=== PATIENT | female | born 1955 | race Caucasian/White ===

== ENCOUNTER 2016-11-12 11:29 | Emergency (ER) | payer MEDICARE, MEDICAID ==
[~2016-11-12 11:29] MED LIST: /ACETCOD2T PO; /MOXI40TA PO; ABIL5TAB PO; ADV500INH INH; ALB2.5NEB INH; ALBU0.084 INH; ALBU83IN INH; ALEV220T26 PO; ASPI81CH21 PO; ASPI81TA60 PO; ATOR1TAB21 PO; ATRO1OPD OU; AVEL1TAB PO; B-1210009 PO; BACT2OIN2 TOP; BENA25CA2 PO; BENZ100C5 PO; DOXY100C42 PO; DUONSOL IN; FURO1TAB15 PO; GABA-283 PO; GABA300C3 PO; GLUC500T PO; HYDR-3713 PO; IBUP200T45 PO; LASI20TA PO; LASI40TA PO; LORA-376 PO; LORA1TAB12 PO; MAGN500C PO; MAGN500T5 PO; MELA3CAP PO; METF500T PO; MORP20SO PO; NEUR300C PO; OXYGEN; PRED10TA2 PO; PRED20TA PO; PRED5TA PO; PROA1AER INH; SERT-141 PO; SPIR1CAP INH; SPIRIVA INH; TRAN1.5D2 TOP; TYLE325T5 PO; VENL37TA PO; VENTAER INH; VITA10002 PO; VITA100L PO; VOLT1GEL24 TD; Vicodin 5/325 PO; spiriva inhaler INH
[2016-11-12 13:22] LABS: MEAN CORPUSCULAR HGB CONC 33.3 g/dl (32.0-36.5); MEAN CORPUSCULAR VOLUME 89.9 fl (80.0-96.0); RED CELL DISTRIBUTION WIDTH 15.1 % (11.5-14.5); WHITE BLOOD COUNT 9.3 K/mm3 (4.0-10.0)
[2016-11-12 13:42] LABS: ANION GAP 6 MEQ/L (8-16); BLOOD UREA NITROGEN 11 MG/DL (7-18); CALCIUM LEVEL 9.1 MG/DL (8.8-10.2); CARBON DIOXIDE LEVEL 30 MEQ/L (21-32); CHLORIDE LEVEL 105 MEQ/L (98-107); CREATININE FOR GFR 0.85 MG/DL (0.55-1.02); GLOMERULAR FILTRATION RATE > 60.0 (>45); GLUCOSE, FASTING 99 MG/DL (80-110); POTASSIUM SERUM 3.9 MEQ/L (3.5-5.1); SODIUM LEVEL 141 MEQ/L (136-145)
--- NOTE | 2016-11-12 13:51 | REP ---
Chest x-ray: Two views. History: Cough. Comparison chest x-ray July 26, 2015. Findings: There is a granulomatous calcification in the left upper lobe. The lungs are otherwise well inflated and clear. Pleural angles are sharp. Heart size is normal. Pulmonary vasculature is not increased. There are some degenerative changes in the thoracic spine. Impression: Old granulomatous nodule. No active disease. Signed by Babatunde Chavez MD 11/12/2016 04:22 P
--- NOTE | 2016-11-12 14:53 | EDDOCDS ---
Physician Documentation [facility] Name: Ava Davila Age: 61 yrs Sex: Female : 1955 Arrival Date: 11/12/2016 Time: 11:29 Bed 8 Private MD: Mane Carlos MD Disposition: 11/12/16 13:57 Discharged to Home/Self Care. Impression: Diarrhea, unspecified, Viral infection, unspecified, Malaise and fatigue. - Condition is Stable. - Discharge Instructions: Diarrhea, Weakness, Fatigue. - Prescriptions for Zofran 4 mg Oral Tablet - take 1 tablet by ORAL route 4 times per day As needed; 10 tablet. - Medication Reconciliation, Local Pharmacy Hours form. - Follow up: Mane Carlos; When: 4 - 5 days; Reason: Recheck today's complaints, Continuance of care. - Problem is an ongoing problem. - Symptoms are unchanged. Historical: - Allergies: meloxicam; montelukast; nicoderm; PENICILLINS; POTASSIUM CHLORIDE; Tramadol HCl; - Home Meds: 1. Spiriva with HandiHaler 18 mcg Inhl CpDv 1 cap once daily (Last dose: 11/11/2016) 2. ProAir HFA 90 mcg/actuation inhalation HFAA 1 puff every 4-6 hours (Last dose: 11/11/2016) 3. prednisone 5 mg Oral tab once daily (Last dose: 11/11/2016) 4. Vicodin 5-325 Oral tab 1 tab every 6 hours (Last dose: 11/11/2016) 5. gabapentin 300 mg Oral cap 1 cap 3 times per day (Last dose: 11/11/2016) 6. albuterol sulfate 2.5 mg /3 mL (0.083 %) Inhl nebu every 6 hours (Last dose: Unknown) 7. Advair Diskus 500-50 mcg/dose Inhl dsdv 1 puff 2 times per day (Last dose: 11/11/2016) 8. atorvastatin 20 mg oral tab 1 tab once daily (Last dose: 11/11/2016) 9. Sertraline 50 mg daily (Last dose: 11/11/2016) - PMHx: Arthritis; Bipolar disorder; CHF; COPD; edema; hyperlipidemia; Obesity; polyneuropathy; - PSHx: Lumpectomy- Right; Hysterectomy; Cholecystectomy; Appendectomy; Lithotripsy; - Social history: Smoking status: Patient uses tobacco products, heavy tobacco smoker. No barriers to communication noted, The patient speaks fluent Angolan. - Family history: No immediate family members are acutely ill. - : The pt / caregiver states he / she is not on anticoagulants. Home medication list is obtained from the patient. - Exposure Risk Screening:: None identified. Vital Signs: 11/12 11:43 BP 147 / 72; Pulse 86; Resp 18; Temp 98.1(TE); Pulse Ox 96% 4% ; Weight 76.66 kg / mb9 169.01 lbs (R); Height 5 ft. (152.40 cm) (R); Pain 0/10; 14:33 BP 129 / 62; Pulse 89; Resp 17; Temp 98.4(O); Pulse Ox 96% 4% ; mb9 11:43 Body Mass Index 33.01 (76.66 kg, 152.40 cm) mb9 MDM: 12:46 IV Saline Lock ordered. ke 12:46 Obtain sample by nasopharyngeal swab ordered. ke 12:46 NS 0.9% 1000 ml IV at bolus once ordered. ke 12:47 CBC Ordered. EDMS 12:47 BMP Ordered. EDMS 12:47 -Influenza A&B Rapid Antigen - Nose Ordered. EDMS 12:47 UA Ordered. EDMS 12:47 Urine Culture Ordered. EDMS 12:47 Chest, 2 View (pa\E\lat) Ordered. EDMS 13:37 Financial registration complete. lg 13:47 CBC Reviewed. ke 13:47 BMP Reviewed. ke 13:47 UA Reviewed. ke 13:47 -Influenza A&B Rapid Antigen - Nose Reviewed. ke 14:27 [facility] Agreement was scanned into [employer] and attached to record. lg Administered Medications: 13:09 Drug: NS 0.9% 1000 ml [sodium chloride 0.9 % intravenous solution] Route: IV; Rate: mb9 bolus; Site: left forearm; 14:36 Follow up: IV Intake: 1000ml mb9 Signatures: Dispatcher [employer] EDChris Díaz Reg Reg lg Elsner, Karl, FIRST BREAKER FEEDER FIRST BREAKER FEEDER Neri SantanaRN RN mb9 The chart was reviewed and I authenticate all verbal orders and agree with the evaluation and treatment provided.Attachments: 14:27 [facility] Payment Agreement lg MTDD
--- NOTE | 2016-11-12 14:53 | EDDOCDS ---
Nurse's Notes [facility] Name: Ava Davila Age: 61 yrs Sex: Female : 1955 Arrival Date: 11/12/2016 Time: 11:29 Bed 8 Private MD: Mane Carlos MD Diagnosis: Diarrhea, unspecified;Viral infection, unspecified;Malaise and fatigue Presentation: 11/12 11:32 Presenting complaint: Presenting complaint: Patient states: "I've been sick. I think I mb9 might have a cold or the flu or something. I haven't been able to eat or drink it makes me sick. I thought I might be dehydrated.". Suicide/Homicide risk assessment- the patient denies having any suicidal and/or homicidal ideations and does not present with any other emotional, behavioral or mental health complaints. Status: Patient is not a hvac field service technician or dependent. Transition of care: patient was not received from another setting of care. 11:32 Method Of Arrival: Ambulance 9 11:32 Acuity: DOMONIQUE Level 3 9 11:32 Adult Sepsis Screening: The patient does not have new or worsening altered mentation. mb9 Patient's respiratory rate is less than 22. Systolic blood pressure is greater than 100. Patient has a qSOFA score of 0- Negative Sepsis Screen. Triage Assessment: 11:43 General: Appears uncomfortable, Behavior is appropriate for age, cooperative. Pain: mb9 Denies pain. HIV screening NA for this visit Offered previously. The patient is triaged at the bedside. See Assessment in Nurses Notes section of ED record. Neurological: Level of Consciousness is awake, alert, Oriented to person, place, time. Respiratory: Airway is patent Respiratory effort is even, unlabored, Breath sounds are clear bilaterally. Breath sounds are diminished bilaterally. GI: Reports nausea. Historical: - Allergies: meloxicam; montelukast; nicoderm; PENICILLINS; POTASSIUM CHLORIDE; Tramadol HCl; - Home Meds: 1. Spiriva with HandiHaler 18 mcg Inhl CpDv 1 cap once daily (Last dose: 11/11/2016) 2. ProAir HFA 90 mcg/actuation inhalation HFAA 1 puff every 4-6 hours (Last dose: 11/11/2016) 3. prednisone 5 mg Oral tab once daily (Last dose: 11/11/2016) 4. Vicodin 5-325 Oral tab 1 tab every 6 hours (Last dose: 11/11/2016) 5. gabapentin 300 mg Oral cap 1 cap 3 times per day (Last dose: 11/11/2016) 6. albuterol sulfate 2.5 mg /3 mL (0.083 %) Inhl nebu every 6 hours (Last dose: Unknown) 7. Advair Diskus 500-50 mcg/dose Inhl dsdv 1 puff 2 times per day (Last dose: 11/11/2016) 8. atorvastatin 20 mg oral tab 1 tab once daily (Last dose: 11/11/2016) 9. Sertraline 50 mg daily (Last dose: 11/11/2016) - PMHx: Arthritis; Bipolar disorder; CHF; COPD; edema; hyperlipidemia; Obesity; polyneuropathy; - PSHx: Lumpectomy- Right; Hysterectomy; Cholecystectomy; Appendectomy; Lithotripsy; - Social history: Smoking status: Patient uses tobacco products, heavy tobacco smoker. No barriers to communication noted, The patient speaks fluent Bermudian. - Family history: No immediate family members are acutely ill. - : The pt / caregiver states he / she is not on anticoagulants. Home medication list is obtained from the patient. - Exposure Risk Screening:: None identified. Screenin:48 Screening information is obtained from the patient. Fall risk: No risks identified. mb9 Assistance ADL's: requires no assistance with activities of daily living. Abuse/DV Screen: The patient / caregiver reports he/she is: not in a situation that causes fear, pain or injury. Nutritional screening: No deficits noted. Advance Directives: Currently, there is a health care proxy, Ashia Davila. There is an active DNR order but there is no copy available at this time. Advance directive information has been placed on a prior [facility] medical record, but the patient/ family does not know when. home support is adequate. Assessment: 12:24 General: Appears in no apparent distress, comfortable, Behavior is fussy. General: pt mb9 able to ambulate to the bathroom with O2 in place with no apparent distress. pt ambulated 20 ft.. Pain: Denies pain. Respiratory: Airway is patent Respiratory effort is even, unlabored. 13:10 Reassessment: Patient appears in no apparent distress at this time. General: Appears mb9 comfortable, Behavior is appropriate for age, cooperative. Respiratory: Airway is patent Respiratory effort is even, unlabored. 14:33 Reassessment: Patient appears in no apparent distress at this time. Patient states mb9 symptoms have improved. Adult Sepsis Screening: The patient does not have new or worsening altered mentation. Patient's respiratory rate is less than 22. Systolic blood pressure is greater than 100. Patient has a qSOFA score of 0- Negative Sepsis Screen. General: Appears in no apparent distress, comfortable, Behavior is appropriate for age, cooperative. Respiratory: Airway is patent Respiratory effort is even, unlabored. Vital Signs: 11:43 BP 147 / 72; Pulse 86; Resp 18; Temp 98.1(TE); Pulse Ox 96% 4% ; Weight 76.66 kg (R); mb9 Height 5 ft. (152.40 cm) (R); Pain 0/10; 14:33 BP 129 / 62; Pulse 89; Resp 17; Temp 98.4(O); Pulse Ox 96% 4% ; mb9 11:43 Body Mass Index 33.01 (76.66 kg, 152.40 cm) mb9 Vitals: 11:43 Log In Time N/A - ambulance arrival. mb9 ED Course: 11:30 Patient visited by Suzy Ayoub, Aquaculture And Fisheries Professor. lbd 11:30 Mane Carlos is Private Physician. lbd 11:30 Patient moved to Waiting lbd 11:31 Carey Mantilla,AMBER is Primary Nurse. lbd 11:31 Patient moved to 8 lbd 11:37 Triage Initiated mb9 11:48 The patient / caregiver is instructed regarding the plan of care and ED course. Patient hussain has correct armband on for positive identification. Placed in gown. Bed in low position. Call light in reach. Side rails up X2. 12:24 Patient visited by Neri Jacobson,AMBER. mb9 12:35 [facility] ke 12:35 Patient visited by Danis Chopra FNP. ke 12:35 Patient visited by Danis Chopra FNP. ke 13:09 Patient visited by Neri Jacobson,AMBER. mb9 13:09 Urine Culture Sent. mb9 13:10 UA Sent. mb9 13:10 -Influenza A&B Rapid Antigen - Nose Sent. mb9 13:10 BMP Sent. mb9 13:10 CBC Sent. mb9 13:10 Inserted saline lock: 18 gauge in right forearm and blood collected. The patient mb9 tolerated the procedure well. 13:46 Patient visited by Danis Chopra FNP. ke 13:56 Mane Carlos is Referral Physician. ke 14:22 Chest, 2 View (pa\\E\\lat) Returned. EDMS 14:27 [facility] Payment Agreement was scanned into [employer] and attached to record. lg 14:33 Discontinued IV lock intact, bleeding controlled, pressure dressing applied, No mb9 redness/swelling at site. No procedures done that require assistance. Administered Medications: 13:09 Drug: NS 0.9% 1000 ml [sodium chloride 0.9 % intravenous solution] Route: IV; Rate: mb9 bolus; Site: left forearm; 14:36 Follow up: IV Intake: 1000ml mb9 Intake: 14:36 IV: 1000.00ml; Total: 1000.00ml. mb9 Order Results: Lab Order: CBC; SPEC'M 11/12/16 13:06 Test: WHITE BLOOD COUNT; Value: 9.3; Range: 4.0-10.0; Units: K/mm3; Status: F Test: RED BLOOD COUNT; Value: 4.42; Range: 4.00-5.40; Units: M/mm3; Status: F Test: HEMOGLOBIN; Value: 13.2; Range: 12.0-16.0; Units: g/dl; Status: F Test: HEMATOCRIT; Value: 39.7; Range: 36.0-47.0; Units: %; Status: F Test: MEAN CORPUSCULAR VOLUME; Value: 89.9; Range: 80.0-96.0; Units: fl; Status: F Test: MEAN CORPUSCULAR HEMOGLOBIN; Value: 30.0; Range: 27.0-33.0; Units: pg; Status: F Test: MEAN CORPUSCULAR HGB CONC; Value: 33.3; Range: 32.0-36.5; Units: g/dl; Status: F Test: RED CELL DISTRIBUTION WIDTH; Value: 15.1; Range: 11.5-14.5; Abnormal: Above high normal; Units: %; Status: F Test: PLATELET COUNT, AUTOMATED; Value: 290; Range: 150-450; Units: k/mm3; Status: F Lab Order: BMP; SPEC'M 11/12/16 13:06 Test: GLUCOSE, FASTING; Value: 99; Range: 80-110; Units: MG/DL; Status: F Test: BLOOD UREA NITROGEN; Value: 11; Range: 7-18; Units: MG/DL; Status: F Test: CREATININE FOR GFR; Value: 0.85; Range: 0.55-1.02; Units: MG/DL; Status: F Test: GLOMERULAR FILTRATION RATE; Value: > 60.0; Range: >45; Status: F Test: SODIUM LEVEL; Value: 141; Range: 136-145; Units: MEQ/L; Status: F Test: POTASSIUM SERUM; Value: 3.9; Range: 3.5-5.1; Units: MEQ/L; Status: F Test: CHLORIDE LEVEL; Value: 105; Range: 98-107; Units: MEQ/L; Status: F Test: CARBON DIOXIDE LEVEL; Value: 30; Range: 21-32; Units: MEQ/L; Status: F Test: ANION GAP; Value: 6; Range: 8-16; Abnormal: Below low normal; Units: MEQ/L; Status: F Test: CALCIUM LEVEL; Value: 9.1; Range: 8.8-10.2; Units: MG/DL; Status: F Test Note: ; Units are mL/min/1.73 m2 Chronic Kidney Disease Staging per NKF: Stage I & II GFR >=60 Normal to Mildly Decreased Stage III GFR 30-59 Moderately Decreased Stage IV GFR 15-29 Severely Decreased Stage V GFR <15 Very Little GFR Left ESRD GFR <15 on CHILD CARE NURSE Lab Order: -Influenza A&B Rapid Antigen - Nose; SPEC'M 11/12/16 13:06 Test: INFLUENZA A RAPID SCR by ICA; Value: INFLUENZA A RESULTS NEGATIVE; Status: F Test: INFLUENZA A RAPID SCR by ICA; Value: Comments:; Status: F Test: INFLUENZA B RAPID SCR by ICA; Value: INFLUENZA B RESULTS NEGATIVE; Status: F Test Note: ; The Influenza test is a direct rapid immunoassay for the qualitative detection of Influenza viral antigen. Cell culture (Viral Culture) testing should be considered to confirm NEGATIVE results and to assist in detecting other viruses that can provide similar clinical symptoms. Please contact the lab within 24 [phone] if confirmatory testing is desired. Lab Order: UA; SPEC'M 11/12/16 13:06 Test: APPEARANCE, URINE; Value: CLEAR; Range: CLEAR; Status: F Test: COLOR, URINE; Value: YELLOW; Range: YELLOW; Status: F Test: PH,URINE; Value: 5.0; Range: 5.0-9.0; Units: UNITS; Status: F Test: SPECIFIC GRAVITY URINE AUTO; Value: 1.024; Range: 1.002-1.035; Status: F Test: PROTEIN, URINE AUTO; Value: NEGATIVE; Range: NEGATIVE; Units: mg/dL; Status: F Test: GLUCOSE, URINE (UA) AUTO; Value: NEGATIVE; Range: NEGATIVE; Units: mg/dL; Status: F Test: KETONE, URINE AUTO; Value: NEGATIVE; Range: NEGATIVE; Units: mg/dL; Status: F Test: UROBILINOGEN, URINE AUTO; Value: 0.2; Range: 0.0-2.0; Units: mg/dL; Status: F Test: BILIRUBIN, URINE AUTO; Value: NEGATIVE; Range: NEGATIVE; Status: F Test: NITRITE, URINE AUTO; Value: NEGATIVE; Range: NEGATIVE; Status: F Test: LEUKOCYTE ESTERASE, URINE AUTO; Value: NEGATIVE; Range: NEGATIVE; Status: F Test: BLOOD, URINE BLOOD; Value: 1+; Range: NEGATIVE; Abnormal: Above high normal; Status: F Test: WBC, URINE AUTO; Value: 0; Range: 0-3; Units: /HPF; Status: F Test: RBC, URINE AUTO; Value: 28; Range: 0-3; Abnormal: Above high normal; Units: /HPF; Status: F Test: BACTERIA, URINE AUTO; Value: NEGATIVE; Range: NEGATIVE; Status: F Test: SQUAMOUS EPITHELIAL CELL UR AU; Value: 8; Range: 0-6; Units: /HPF; Status: F Test: MUCUS, URINE; Value: SMALL; Range: NEGATIVE; Status: F Test: HYALINE CAST, URINE AUTO; Value: 0; Range: 0-1; Units: /LPF; Status: F Radiology Order: Chest, 2 View (pa\\E\\lat) Test: Chest, 2 View (pa\\E\\lat) REASON FOR EXAMINATION: Cough; Chest x-ray: Two views.; ; History: Cough. Comparison chest x-ray July 26, 2015.; ; Findings: There is a granulomatous calcification in the left upper lobe. The; lungs are otherwise well inflated and clear. Pleural angles are sharp. Heart; size is normal. Pulmonary vasculature is not increased. There are some; degenerative changes in the thoracic spine.; ; Impression:; ; Old granulomatous nodule. No active disease.; ; ; ; ; Unreviewed; Outcome: 13:57 Discharge ordered by Provider. annette 14:33 Discharge Assessment: Patient awake, alert and oriented x 3. No cognitive and/or mb9 functional deficits noted. Patient verbalized understanding of disposition instructions. patient administered narcotics - no. The following High Risk Discharge criteria are identified: None. Discharged to home ambulatory. Condition: good Condition: stable Condition: improved. Discharge instructions given to patient, Instructed on discharge instructions, follow up and referral plans. medication usage, Demonstrated understanding of instructions, medications, Pt was receptive of discharge instructions/ teaching. Prescriptions given X 1. No special radiology studies were completed. Property :Personal belongings accompany Pt. 14:52 Patient left the ED. mb9 Signatures: Dispatcher [employer] EDMS Suzy Ayoub, Aquaculture And Fisheries Professor Unit lbd Chris Martin, Reg Reg lg Danis Chopra, SPACE AND STORAGE CLERK SPACE AND STORAGE CLERK Neri Santana,RN RN mb9 MTDD
--- NOTE | 2016-11-14 15:52 | EDDOCDS ---
Nurse's Notes [facility] Name: Ava Davila Age: 61 yrs Sex: Female : 1955 Arrival Date: 11/12/2016 Time: 11:29 Bed 8 Private MD: Mane Carlos MD Diagnosis: Diarrhea, unspecified;Viral infection, unspecified;Malaise and fatigue Presentation: 11/12 11:32 Presenting complaint: Presenting complaint: Patient states: "I've been sick. I think I mb9 might have a cold or the flu or something. I haven't been able to eat or drink it makes me sick. I thought I might be dehydrated.". Suicide/Homicide risk assessment- the patient denies having any suicidal and/or homicidal ideations and does not present with any other emotional, behavioral or mental health complaints. Status: Patient is not a director human services or dependent. Transition of care: patient was not received from another setting of care. 11:32 Method Of Arrival: Ambulance 9 11:32 Acuity: DOMONIQUE Level 3 9 11:32 Adult Sepsis Screening: The patient does not have new or worsening altered mentation. mb9 Patient's respiratory rate is less than 22. Systolic blood pressure is greater than 100. Patient has a qSOFA score of 0- Negative Sepsis Screen. Triage Assessment: 11:43 General: Appears uncomfortable, Behavior is appropriate for age, cooperative. Pain: mb9 Denies pain. HIV screening NA for this visit Offered previously. The patient is triaged at the bedside. See Assessment in Nurses Notes section of ED record. Neurological: Level of Consciousness is awake, alert, Oriented to person, place, time. Respiratory: Airway is patent Respiratory effort is even, unlabored, Breath sounds are clear bilaterally. Breath sounds are diminished bilaterally. GI: Reports nausea. Historical: - Allergies: meloxicam; montelukast; nicoderm; PENICILLINS; POTASSIUM CHLORIDE; Tramadol HCl; - Home Meds: 1. Spiriva with HandiHaler 18 mcg Inhl CpDv 1 cap once daily (Last dose: 11/11/2016) 2. ProAir HFA 90 mcg/actuation inhalation HFAA 1 puff every 4-6 hours (Last dose: 11/11/2016) 3. prednisone 5 mg Oral tab once daily (Last dose: 11/11/2016) 4. Vicodin 5-325 Oral tab 1 tab every 6 hours (Last dose: 11/11/2016) 5. gabapentin 300 mg Oral cap 1 cap 3 times per day (Last dose: 11/11/2016) 6. albuterol sulfate 2.5 mg /3 mL (0.083 %) Inhl nebu every 6 hours (Last dose: Unknown) 7. Advair Diskus 500-50 mcg/dose Inhl dsdv 1 puff 2 times per day (Last dose: 11/11/2016) 8. atorvastatin 20 mg oral tab 1 tab once daily (Last dose: 11/11/2016) 9. Sertraline 50 mg daily (Last dose: 11/11/2016) - PMHx: Arthritis; Bipolar disorder; CHF; COPD; edema; hyperlipidemia; Obesity; polyneuropathy; - PSHx: Lumpectomy- Right; Hysterectomy; Cholecystectomy; Appendectomy; Lithotripsy; - Social history: Smoking status: Patient uses tobacco products, heavy tobacco smoker. No barriers to communication noted, The patient speaks fluent [place]. - Family history: No immediate family members are acutely ill. - : The pt / caregiver states he / she is not on anticoagulants. Home medication list is obtained from the patient. - Exposure Risk Screening:: None identified. Screenin:48 Screening information is obtained from the patient. Fall risk: No risks identified. mb9 Assistance ADL's: requires no assistance with activities of daily living. Abuse/DV Screen: The patient / caregiver reports he/she is: not in a situation that causes fear, pain or injury. Nutritional screening: No deficits noted. Advance Directives: Currently, there is a health care proxy, Ashia Davila. There is an active DNR order but there is no copy available at this time. Advance directive information has been placed on a prior [facility] medical record, but the patient/ family does not know when. home support is adequate. Assessment: 12:24 General: Appears in no apparent distress, comfortable, Behavior is fussy. General: pt mb9 able to ambulate to the bathroom with O2 in place with no apparent distress. pt ambulated 20 ft.. Pain: Denies pain. Respiratory: Airway is patent Respiratory effort is even, unlabored. 13:10 Reassessment: Patient appears in no apparent distress at this time. General: Appears mb9 comfortable, Behavior is appropriate for age, cooperative. Respiratory: Airway is patent Respiratory effort is even, unlabored. 14:33 Reassessment: Patient appears in no apparent distress at this time. Patient states mb9 symptoms have improved. Adult Sepsis Screening: The patient does not have new or worsening altered mentation. Patient's respiratory rate is less than 22. Systolic blood pressure is greater than 100. Patient has a qSOFA score of 0- Negative Sepsis Screen. General: Appears in no apparent distress, comfortable, Behavior is appropriate for age, cooperative. Respiratory: Airway is patent Respiratory effort is even, unlabored. Vital Signs: 11:43 BP 147 / 72; Pulse 86; Resp 18; Temp 98.1(TE); Pulse Ox 96% 4% ; Weight 76.66 kg (R); mb9 Height 5 ft. (152.40 cm) (R); Pain 0/10; 14:33 BP 129 / 62; Pulse 89; Resp 17; Temp 98.4(O); Pulse Ox 96% 4% ; mb9 11:43 Body Mass Index 33.01 (76.66 kg, 152.40 cm) mb9 Vitals: 11:43 Log In Time N/A - ambulance arrival. mb9 ED Course: 11:30 Patient visited by Suzy Ayoub, Tubing Machine Tender. lbd 11:30 Mane Carlos is Private Physician. lbd 11:30 Patient moved to Waiting lbd 11:31 Carey Mantilla,AMBER is Primary Nurse. lbd 11:31 Patient moved to 8 lbd 11:37 Triage Initiated mb9 11:48 The patient / caregiver is instructed regarding the plan of care and ED course. Patient hussain has correct armband on for positive identification. Placed in gown. Bed in low position. Call light in reach. Side rails up X2. 12:24 Patient visited by Neri Jacobson,AMBER. mb9 12:35 [facility] F[facility]. ke 12:35 Patient visited by Danis Chopra FNP. ke 12:35 Patient visited by Danis Chopra FNP. ke 13:09 Patient visited by Neri Jacobson,AMBER. mb9 13:09 Urine Culture Sent. mb9 13:10 UA Sent. mb9 13:10 -Influenza A&B Rapid Antigen - Nose Sent. mb9 13:10 BMP Sent. mb9 13:10 CBC Sent. mb9 13:10 Inserted saline lock: 18 gauge in right forearm and blood collected. The patient mb9 tolerated the procedure well. 13:46 Patient visited by Danis Chopra FNP. ke 13:56 Mane Carols is Referral Physician. ke 14:22 Chest, 2 View (pa\\E\\lat) Returned. EDMS 14:27 [facility] [place] Payment Agreement was scanned into [employer] and attached to record. lg 14:33 Discontinued IV lock intact, bleeding controlled, pressure dressing applied, No mb9 redness/swelling at site. No procedures done that require assistance. 16:04 T-Sheet-- Draft Copy was scanned into [employer] and attached to record. klr Administered Medications: 13:09 Drug: NS 0.9% 1000 ml [sodium chloride 0.9 % intravenous solution] Route: IV; Rate: mb9 bolus; Site: left forearm; 14:36 Follow up: IV Intake: 1000ml mb9 Intake: 14:36 IV: 1000.00ml; Total: 1000.00ml. mb9 Order Results: Lab Order: CBC; SPEC'M 11/12/16 13:06 Test: WHITE BLOOD COUNT; Value: 9.3; Range: 4.0-10.0; Units: K/mm3; Status: F Test: RED BLOOD COUNT; Value: 4.42; Range: 4.00-5.40; Units: M/mm3; Status: F Test: HEMOGLOBIN; Value: 13.2; Range: 12.0-16.0; Units: g/dl; Status: F Test: HEMATOCRIT; Value: 39.7; Range: 36.0-47.0; Units: %; Status: F Test: MEAN CORPUSCULAR VOLUME; Value: 89.9; Range: 80.0-96.0; Units: fl; Status: F Test: MEAN CORPUSCULAR HEMOGLOBIN; Value: 30.0; Range: 27.0-33.0; Units: pg; Status: F Test: MEAN CORPUSCULAR HGB CONC; Value: 33.3; Range: 32.0-36.5; Units: g/dl; Status: F Test: RED CELL DISTRIBUTION WIDTH; Value: 15.1; Range: 11.5-14.5; Abnormal: Above high normal; Units: %; Status: F Test: PLATELET COUNT, AUTOMATED; Value: 290; Range: 150-450; Units: k/mm3; Status: F Lab Order: BMP; SPEC'M 11/12/16 13:06 Test: GLUCOSE, FASTING; Value: 99; Range: 80-110; Units: MG/DL; Status: F Test: BLOOD UREA NITROGEN; Value: 11; Range: 7-18; Units: MG/DL; Status: F Test: CREATININE FOR GFR; Value: 0.85; Range: 0.55-1.02; Units: MG/DL; Status: F Test: GLOMERULAR FILTRATION RATE; Value: > 60.0; Range: >45; Status: F Test: SODIUM LEVEL; Value: 141; Range: 136-145; Units: MEQ/L; Status: F Test: POTASSIUM SERUM; Value: 3.9; Range: 3.5-5.1; Units: MEQ/L; Status: F Test: CHLORIDE LEVEL; Value: 105; Range: 98-107; Units: MEQ/L; Status: F Test: CARBON DIOXIDE LEVEL; Value: 30; Range: 21-32; Units: MEQ/L; Status: F Test: ANION GAP; Value: 6; Range: 8-16; Abnormal: Below low normal; Units: MEQ/L; Status: F Test: CALCIUM LEVEL; Value: 9.1; Range: 8.8-10.2; Units: MG/DL; Status: F Test Note: ; Units are mL/min/1.73 m2 Chronic Kidney Disease Staging per NKF: Stage I & II GFR >=60 Normal to Mildly Decreased Stage III GFR 30-59 Moderately Decreased Stage IV GFR 15-29 Severely Decreased Stage V GFR <15 Very Little GFR Left ESRD GFR <15 on SERVICE [facility] REPRESENTATIVE Lab Order: -Influenza A&B Rapid Antigen - Nose; SPEC'M 11/12/16 13:06 Test: INFLUENZA A RAPID SCR by ICA; Value: INFLUENZA A RESULTS NEGATIVE; Status: F Test: INFLUENZA A RAPID SCR by ICA; Value: Comments:; Status: F Test: INFLUENZA B RAPID SCR by ICA; Value: INFLUENZA B RESULTS NEGATIVE; Status: F Test Note: ; The Influenza test is a direct rapid immunoassay for the qualitative detection of Influenza viral antigen. Cell culture (Viral Culture) testing should be considered to confirm NEGATIVE results and to assist in detecting other viruses that can provide similar clinical symptoms. Please contact the lab within 24 hours ([phone]) if confirmatory testing is desired. Lab Order: UA; SPEC'M 11/12/16 13:06 Test: APPEARANCE, URINE; Value: CLEAR; Range: CLEAR; Status: F Test: COLOR, URINE; Value: YELLOW; Range: YELLOW; Status: F Test: PH,URINE; Value: 5.0; Range: 5.0-9.0; Units: UNITS; Status: F Test: SPECIFIC GRAVITY URINE AUTO; Value: 1.024; Range: 1.002-1.035; Status: F Test: PROTEIN, URINE AUTO; Value: NEGATIVE; Range: NEGATIVE; Units: mg/dL; Status: F Test: GLUCOSE, URINE (UA) AUTO; Value: NEGATIVE; Range: NEGATIVE; Units: mg/dL; Status: F Test: KETONE, URINE AUTO; Value: NEGATIVE; Range: NEGATIVE; Units: mg/dL; Status: F Test: UROBILINOGEN, URINE AUTO; Value: 0.2; Range: 0.0-2.0; Units: mg/dL; Status: F Test: BILIRUBIN, URINE AUTO; Value: NEGATIVE; Range: NEGATIVE; Status: F Test: NITRITE, URINE AUTO; Value: NEGATIVE; Range: NEGATIVE; Status: F Test: LEUKOCYTE ESTERASE, URINE AUTO; Value: NEGATIVE; Range: NEGATIVE; Status: F Test: BLOOD, URINE BLOOD; Value: 1+; Range: NEGATIVE; Abnormal: Above high normal; Status: F Test: WBC, URINE AUTO; Value: 0; Range: 0-3; Units: /HPF; Status: F Test: RBC, URINE AUTO; Value: 28; Range: 0-3; Abnormal: Above high normal; Units: /HPF; Status: F Test: BACTERIA, URINE AUTO; Value: NEGATIVE; Range: NEGATIVE; Status: F Test: SQUAMOUS EPITHELIAL CELL UR AU; Value: 8; Range: 0-6; Units: /HPF; Status: F Test: MUCUS, URINE; Value: SMALL; Range: NEGATIVE; Status: F Test: HYALINE CAST, URINE AUTO; Value: 0; Range: 0-1; Units: /LPF; Status: F Lab Order: Urine Culture; SPEC'M 11/12/16 13:06 Test: URINE CULTURE; Value: <EXTERNAL COMMENT eCWMed> FULL REPORT IN LAB NOTES (eCW and Medent).; Status: F Test: URINE CULTURE; Value: URINE CULTURE RESULT NO GROWTH CLINICAL SIGNIFICANCE 1 ORGANISM; Status: F Radiology Order: Chest, 2 View (pa\\E\\lat) Test: Chest, 2 View (pa\\E\\lat) REASON FOR EXAMINATION: Cough; Chest x-ray: Two views.; ; History: Cough. Comparison chest x-ray July 26, 2015.; ; Findings: There is a granulomatous calcification in the left upper lobe. The; lungs are otherwise well inflated and clear. Pleural angles are sharp. Heart; size is normal. Pulmonary vasculature is not increased. There are some; degenerative changes in the thoracic spine.; ; Impression:; ; Old granulomatous nodule. No active disease.; ; ; Signed by; Babatunde Chavez MD 11/12/2016 04:22 P; Outcome: 13:57 Discharge ordered by Provider. ke 14:33 Discharge Assessment: Patient awake, alert and oriented x 3. No cognitive and/or mb9 functional deficits noted. Patient verbalized understanding of disposition instructions. patient administered narcotics - no. The following High Risk Discharge criteria are identified: None. Discharged to home ambulatory. Condition: good Condition: stable Condition: improved. Discharge instructions given to patient, Instructed on discharge instructions, follow up and referral plans. medication usage, Demonstrated understanding of instructions, medications, Pt was receptive of discharge instructions/ teaching. Prescriptions given X 1. No special radiology studies were completed. Property :Personal belongings accompany Pt. 14:52 Patient left the ED. mb9 Signatures: Dispatcher [employer] EDMS Suzy Ayoub, Tubing Machine Tender Unit lbd Chris Martin, [facility] Danis Chopra, ERP ENGINEER ERP ENGINEER Neri Santana,AMBER RN mb9 Elva Pineda Chart Complete MTDD
--- NOTE | 2016-11-14 15:52 | EDDOCDS ---
Physician Documentation [facility] Name: Ava Davila Age: 61 yrs Sex: Female : 1955 Arrival Date: 11/12/2016 Time: 11:29 Bed 8 Private MD: Mane Carlos MD Disposition: 11/12/16 13:57 Discharged to Home/Self Care. Impression: Diarrhea, unspecified, Viral infection, unspecified, Malaise and fatigue. - Condition is Stable. - Discharge Instructions: Diarrhea, Weakness, Fatigue. - Prescriptions for Zofran 4 mg Oral Tablet - take 1 tablet by ORAL route 4 times per day As needed; 10 tablet. - Medication Reconciliation, Local Pharmacy Hours form. - Follow up: Mane Carlos; When: 4 - 5 days; Reason: Recheck today's complaints, Continuance of care. - Problem is an ongoing problem. - Symptoms are unchanged. Historical: - Allergies: meloxicam; montelukast; nicoderm; PENICILLINS; POTASSIUM CHLORIDE; Tramadol HCl; - Home Meds: 1. Spiriva with HandiHaler 18 mcg Inhl CpDv 1 cap once daily (Last dose: 11/11/2016) 2. ProAir HFA 90 mcg/actuation inhalation HFAA 1 puff every 4-6 hours (Last dose: 11/11/2016) 3. prednisone 5 mg Oral tab once daily (Last dose: 11/11/2016) 4. Vicodin 5-325 Oral tab 1 tab every 6 hours (Last dose: 11/11/2016) 5. gabapentin 300 mg Oral cap 1 cap 3 times per day (Last dose: 11/11/2016) 6. albuterol sulfate 2.5 mg /3 mL (0.083 %) Inhl nebu every 6 hours (Last dose: Unknown) 7. Advair Diskus 500-50 mcg/dose Inhl dsdv 1 puff 2 times per day (Last dose: 11/11/2016) 8. atorvastatin 20 mg oral tab 1 tab once daily (Last dose: 11/11/2016) 9. Sertraline 50 mg daily (Last dose: 11/11/2016) - PMHx: Arthritis; Bipolar disorder; CHF; COPD; edema; hyperlipidemia; Obesity; polyneuropathy; - PSHx: Lumpectomy- Right; Hysterectomy; Cholecystectomy; Appendectomy; Lithotripsy; - Social history: Smoking status: Patient uses tobacco products, heavy tobacco smoker. No barriers to communication noted, The patient speaks fluent Chilean. - Family history: No immediate family members are acutely ill. - : The pt / caregiver states he / she is not on anticoagulants. Home medication list is obtained from the patient. - Exposure Risk Screening:: None identified. Vital Signs: 11/12 11:43 BP 147 / 72; Pulse 86; Resp 18; Temp 98.1(TE); Pulse Ox 96% 4% ; Weight 76.66 kg / mb9 169.01 lbs (R); Height 5 ft. (152.40 cm) (R); Pain 0/10; 14:33 BP 129 / 62; Pulse 89; Resp 17; Temp 98.4(O); Pulse Ox 96% 4% ; mb9 11:43 Body Mass Index 33.01 (76.66 kg, 152.40 cm) mb9 MDM: 12:46 IV Saline Lock ordered. ke 12:46 Obtain sample by nasopharyngeal swab ordered. ke 12:46 NS 0.9% 1000 ml IV at bolus once ordered. ke 12:47 CBC Ordered. EDMS 12:47 BMP Ordered. EDMS 12:47 -Influenza A&B Rapid Antigen - Nose Ordered. EDMS 12:47 UA Ordered. EDMS 12:47 Urine Culture Ordered. EDMS 12:47 Chest, 2 View (pa\E\lat) Ordered. EDMS 13:37 Financial registration complete. lg 13:47 CBC Reviewed. ke 13:47 BMP Reviewed. ke 13:47 UA Reviewed. ke 13:47 -Influenza A&B Rapid Antigen - Nose Reviewed. ke 14:27 [facility] Payment Agreement was scanned into [employer] and attached to record. lg 16:04 T-Sheet-- Draft Copy was scanned into [employer] and attached to record. klr Administered Medications: 13:09 Drug: NS 0.9% 1000 ml [sodium chloride 0.9 % intravenous solution] Route: IV; Rate: mb9 bolus; Site: left forearm; 14:36 Follow up: IV Intake: 1000ml mb9 Signatures: Dispatcher [employer] EDMS Chris Martin, [facility] Danis Chopra, TROLLEY CLEANER TROLLEY CLEANER eNri Santana RN RN mb9 Elva Pineda The chart was reviewed and I authenticate all verbal orders and agree with the evaluation and treatment provided.Attachments: 14:27 [facility] [place] lg 16:04 T-Sheet-- Draft Copy porfirior Chart Complete MTDD
--- NOTE | 2016-11-14 15:52 | EDDOCDS ---
Physician Documentation [facility] Name: Ava Davila Age: 61 yrs Sex: Female : 1955 Arrival Date: 11/12/2016 Time: 11:29 Bed 8 Private MD: Mane Carlos MD Disposition: 11/12/16 13:57 Discharged to Home/Self Care. Impression: Diarrhea, unspecified, Viral infection, unspecified, Malaise and fatigue. - Condition is Stable. - Discharge Instructions: Diarrhea, Weakness, Fatigue. - Prescriptions for Zofran 4 mg Oral Tablet - take 1 tablet by ORAL route 4 times per day As needed; 10 tablet. - Medication Reconciliation, Local Pharmacy Hours form. - Follow up: Mane Carlos; When: 4 - 5 days; Reason: Recheck today's complaints, Continuance of care. - Problem is an ongoing problem. - Symptoms are unchanged. Historical: - Allergies: meloxicam; montelukast; nicoderm; PENICILLINS; POTASSIUM CHLORIDE; Tramadol HCl; - Home Meds: 1. Spiriva with HandiHaler 18 mcg Inhl CpDv 1 cap once daily (Last dose: 11/11/2016) 2. ProAir HFA 90 mcg/actuation inhalation HFAA 1 puff every 4-6 hours (Last dose: 11/11/2016) 3. prednisone 5 mg Oral tab once daily (Last dose: 11/11/2016) 4. Vicodin 5-325 Oral tab 1 tab every 6 hours (Last dose: 11/11/2016) 5. gabapentin 300 mg Oral cap 1 cap 3 times per day (Last dose: 11/11/2016) 6. albuterol sulfate 2.5 mg /3 mL (0.083 %) Inhl nebu every 6 hours (Last dose: Unknown) 7. Advair Diskus 500-50 mcg/dose Inhl dsdv 1 puff 2 times per day (Last dose: 11/11/2016) 8. atorvastatin 20 mg oral tab 1 tab once daily (Last dose: 11/11/2016) 9. Sertraline 50 mg daily (Last dose: 11/11/2016) - PMHx: Arthritis; Bipolar disorder; CHF; COPD; edema; hyperlipidemia; Obesity; polyneuropathy; - PSHx: Lumpectomy- Right; Hysterectomy; Cholecystectomy; Appendectomy; Lithotripsy; - Social history: Smoking status: Patient uses tobacco products, heavy tobacco smoker. No barriers to communication noted, The patient speaks fluent Salvadorean. - Family history: No immediate family members are acutely ill. - : The pt / caregiver states he / she is not on anticoagulants. Home medication list is obtained from the patient. - Exposure Risk Screening:: None identified. Vital Signs: 11/12 11:43 BP 147 / 72; Pulse 86; Resp 18; Temp 98.1(TE); Pulse Ox 96% 4% ; Weight 76.66 kg / mb9 169.01 lbs (R); Height 5 ft. (152.40 cm) (R); Pain 0/10; 14:33 BP 129 / 62; Pulse 89; Resp 17; Temp 98.4(O); Pulse Ox 96% 4% ; mb9 11:43 Body Mass Index 33.01 (76.66 kg, 152.40 cm) mb9 MDM: 12:46 IV Saline Lock ordered. ke 12:46 Obtain sample by nasopharyngeal swab ordered. ke 12:46 NS 0.9% 1000 ml IV at bolus once ordered. ke 12:47 CBC Ordered. EDMS 12:47 BMP Ordered. EDMS 12:47 -Influenza A&B Rapid Antigen - Nose Ordered. EDMS 12:47 UA Ordered. EDMS 12:47 Urine Culture Ordered. EDMS 12:47 Chest, 2 View (pa\E\lat) Ordered. EDMS 13:37 Financial registration complete. lg 13:47 CBC Reviewed. ke 13:47 BMP Reviewed. ke 13:47 UA Reviewed. ke 13:47 -Influenza A&B Rapid Antigen - Nose Reviewed. ke 14:27 [facility] Payment Agreement was scanned into [employer] and attached to record. lg 16:04 T-Sheet-- Draft Copy was scanned into [employer] and attached to record. klr Administered Medications: 13:09 Drug: NS 0.9% 1000 ml [sodium chloride 0.9 % intravenous solution] Route: IV; Rate: mb9 bolus; Site: left forearm; 14:36 Follow up: IV Intake: 1000ml mb9 Signatures: Dispatcher [employer] EDMS Chris Martin, [facility] Danis Chopra, POLITICAL SCIENTIST POLITICAL SCIENTIST Neri Santana RN RN mb9 Elva Pineda The chart was reviewed and I authenticate all verbal orders and agree with the evaluation and treatment provided.Attachments: 14:27 [facility] [place] Agreement lg 16:04 T-Sheet-- Draft Copy porfirior Chart Complete MTDD
== END 2016-11-12 14:42 | disposition home or self-care (01) ==
LOC: M ED 11:29
DX: R53.81 Other malaise (principal); R53.83 Other fatigue; B34.9 Viral infection, unspecified; R19.7 Diarrhea, unspecified; M12.9 Arthropathy, unspecified; F31.9 Bipolar disorder, unspecified; I50.20 Unspecified systolic (congestive) heart failure; J44.9 Chronic obstructive pulmonary disease, unspecified; R60.9 Edema, unspecified; E78.5 Hyperlipidemia, unspecified; E66.9 Obesity, unspecified; G60.9 Hereditary and idiopathic neuropathy, unspecified; F17.210 Nicotine dependence, cigarettes, uncomplicated; Z79.51 Long term (current) use of inhaled steroids; Z79.899 Other long term (current) drug therapy; Z88.8 Allergy status to other drugs, medicaments and biological substances; Z88.0 Allergy status to penicillin

== ENCOUNTER → 2017-01-08 | Outpatient (CLI) | payer MEDICARE, MEDICAID ==
[~2017-01-08] MED LIST changes: +GABA-282 PO; -GABA300C3 PO; -SERT-141 PO; +SERT50TA PO
--- NOTE | 2017-01-15 01:25 | ECWPNPC ---
PATIENT NAME: XIN CHRISTOPHER : 1955 GENDER: FEMALE VISIT DATE: 01/08/2017 DISCHARGE DATE: 01/08/17 1449 VISIT LOCKED DATE TIME: PHYSICIAN: CORINA HOLGUIN RESOURCE: CORINA HOLGUIN REASON FOR APPOINTMENT 1. CHRONIC PAIN HISTORY OF PRESENT ILLNESS NEW PATIENT CONSULT: 61 Y/O FEMALE REFERRED BY [facility] MERGED WITH [facility] FOR CHRONIC GENERALIZED JOINT PAIN.WORSE AREA OF PAIN IS HANDS AND FEET.WRITING,DOING DISHES AND PEELING POTATOES AGGREVATES PAIN.PAIN RELIEVED SOMEWHAT WHEN LAYING DOWN.WAS RECIEVING 6-8 HYDROCODONE IN PAST FOR 4 YEARS UP UNTIL ABOUT 6 MONTHS AGO.[facility] HAS BEEN WEANING DOWN HYDROCODONE AND NOW IS EXPERIENCING MORE PAIN.SHE IS HERE WITH HER DAUGHTER AND WE HAD >20 MIN.CONVERSATION REGARDING EFFECTS OF STILL RUNNER OPIOD EXPOSURE.DISCUSSED ISSUES OF TOLERANCE AND CHEMICAL DEPENDENCY WELL OPIOD INDUCED HYPERALGESIA.PATIENT HAS SEVERE BREATHING ISSUES AND COMORBIDITIES THAT COMPLICATE TREATMENT PLAN.SHE IS IN AGREEMENT TO TRY TO USE MEDICATION SPARINGLY AND NOT DAILY.I DID OFFER TO MANAGE HER PAIN MEDICINE AND DO ROUTINE MONITORING AND REPORT TO [facility]IMARY [facility] AFTER 6MOS WITH MY RECOMMENDATIONS BUT WE WOULDNT BE ABLE TO TAKE OVER MEDICINE MANAGEMENT STILL RUNNER.THERE WOULD HAVE TO BE A CONVERSATION WITH HER PCP.HE WOULD HAVE TO BE IN AGREEMENT TO TAKS PATIENT BACK AND PRESCRIBE OPIODS IF WE FELT SHE WAS USING THEM APPROPRIATELY AND SHE WAS BENEFITING FROM IMPROVED QUALITY OF LIFE.IT SHOULD BE NOTED THAT PATIENT CONTINUES TO SMOKE. WHEN DID YOUR PAIN FIRST START? . BRIEFLY DESCRIBE HOW YOUR PAIN STARTED? . HOW DOES YOUR PAIN CHANGE WITH TIME? . DOES YOUR PAIN AWAKEN YOU FROM SLEEP? . HOW MANY HOURS OF SLEEP DO YOU NORMALLY GET? . ANY DIAGNOSTIC TESTING? . FACILITY WHERE TESTS WERE DONE? ____. PAIN TREATMENT TREATMENT YES CANCER HAVE YOU EVER HAD ANY TYPE OF CANCER?NO NO. PAIN SCREENING: PATIENT HAS A COMPLAINT OF ACUTE OR CHRONIC PAIN :YES FALL RISK SCREENING: SCREENING :NO FALLS IN THE PAST YEAR CORMIER INVENTORY: QUESTIONNAIRE ASSESSEDTBD SCORE VALUE CALCULATED TBD CURRENT MEDICATIONS TAKING MAY HAVE NEBULIZER DX 466.0 DIRECTED - DAILY TAKING OXYGEN 4 ALL DAY NASAL CANNULA NEEDED TAKING ALBUTEROL SULFATE (2.5 MG/3ML) 0.083% NEBULIZATION SOLUTION DIRECTED INHALATION EVERY 4-6 HOURS NEEDED TAKING BENADRYL 25 MG TABLET 1-2 TABLET NEEDED ORALLY EVERY 6 HRS PRN MDD = 8 TAKING LIPITOR 20 MG TABLET 1 TABLET ORALLY ONCE A DAY TAKING PROAIR HFA 108 (90 BASE) MCG/ACT AEROSOL SOLUTION 2 PUFFS NEEDED INHALATION EVERY 4 -6HRS PRN SHORTNESS OF BREATH TAKING PREDNISONE 5 MG TABLET 1 TAB(S) ORALLY ONCE A DAY TAKING ZOLOFT 50 MG TABLET 1 TABLET ORALLY ONCE A DAY TAKING GABAPENTIN 300 MG CAPSULE 1 CAPSULE ORALLY THREE TIMES A DAY TAKING ASPIRIN 81 MG TABLET 1 TABLET ORALLY ONCE A DAY TAKING ADVAIR DISKUS 500-50 MCG/DOSE AEROSOL POWDER BREATH ACTIVATED 1 PUFF INHALATION TWICE A DAY TAKING SPIRIVA HANDIHALER 18 MCG CAPSULE 1 CAPSULE INHALATION ONCE DAILY TAKING HYDROCODONE-ACETAMINOPHEN 7.5-325 MG TABLET 1 TABLET NEEDED ORALLY (DO NOT FILL EARLY) EVERY 12 HRS NEEDED FOR PAIN MDD: 2 NOT-TAKING VITAMIN B12 1000 MCG TABLET 1 TABLET ORALLY ONCE A DAY NOT-TAKING MAGNESIUM 500 MG TABLET 1 TABLET WITH A MEAL ORALLY ONCE A DAY NOT-TAKING LASIX 40 MG TABLET 2 TABLET ORALLY TWICE A DAY NEEDED NOT-TAKING KLOR-CON 10 10 MEQ TABLET EXTENDED RELEASE 1 TABLET ORALLY DAILY NEEDED NOT-TAKING FOLIC ACID 1 MG TABLET 1 TABLET ORALLY ONCE A DAY NOT-TAKING METFORMIN HCL 500 MG TABLET 1 TABLET WITH MEALS ORALLY TWICE A DAY MEDICATION LIST REVIEWED AND RECONCILED WITH THE PATIENT PAST MEDICAL HISTORY TYPE 2 DM BIPOLAR DISORDER COPD-- SEVERE, FEV1 0.6 5/13, ON O2 2L AT REST/4 L WITH ACTIVITY TOBACCO USE OBESITY HYPERLIPIDEMIA ALLERGIC RHINITIS + SIL, ? SLE-- [facility] E[facility] 12/25: LAE 40 MM, NL EF, UNABLE TO DETERMINE RT-SIDED PRESSURES CONGESTIVE HEART FAILURE MYOCARDIAL INFARCTION ASTHMA KIDNEY STONES ARTHRITIS ALLERGIES MONTELUKAST (SINGULAIR): HIVES: ALLERGY PENICILLIN: RASH: ALLERGY TRAMADOL , (ULTRAM): RASH: ALLERGY NICODERM CQ: SWELLING: ALLERGY MELOXICAM: HIVES: ALLERGY PEANUTS AND PEANUT OIL: HIVES: ALLERGY SURGICAL HISTORY APPENDECTOMY 1963 CHOLECYSTECTOMY 1985 KIDNEY STONE/CYSTOSCOPY POLYPECTOMY 1993 REPAIR TORN LIGAMENTS LEFT KNEE 1997 HYSTERECTOMY 1998 RIGHT BREAST REMOVAL BENIGN LUMP FAMILY HISTORY FATHER: 65 YRS, CIRRHOSIS MOTHER: 74 YRS, EMPHYSEMA SIBLINGS: , BROTHER AGE 59 [place], SISTER AGE 59 COPD 1 BROTHER(S) , 1 SISTER(S) . 4DAUGHTER(S) . SOCIAL HISTORY GENERAL: TOBACCO USE ARE YOU A:CURRENT SMOKER PATIENT COUNSELED ON THE DANGERS OF TOBACCO USE AND URGED TO QUIT:01/08/2017 CESSATION INFORMATION OFFERED AND DECLINED. ARE YOU INTERESTED IN QUITTING?NOT READY TO QUIT COUNSELED THE PATIENT ON SMOKING EFFECTS, EDUCATION [id number]/29/2017 ALCOHOL SCREENING POINTS0 INTERPRETATIONNEGATIVE MORAVIAN GNOSTICIST. PAIN CLINIC PFS, CLERGY, PUBLIC HEALTH REFERRALS CLERGY REFERRAL NEEDED?NO WAS THE PROVIDER NOTIFIED OF ANY PERTINENT INFO?NO PFS REFERRAL NEEDED?NO PUBLIC HEALTH REFERRAL NEEDED?NO PATIENT: ____. ADVANCED DIRECTIVES HEALTH CARE PROXY?YES NAME OF HCP [facility] CONTACT # FOR HCP [phone] ADVISED RISKS OF CONTINUED SMOKING, OFFERED CESSATION AIDS/DECLINED. HOSPITALIZATION/MAJOR DIAGNOSTIC PROCEDURE SURGERIES MULTIPLE FOR RESPIRATORY DIFFICULTIES REVIEW OF SYSTEMS PAIN DIARY: PAIN SCORE . DESCRIPTION OF PAIN? . WHEN DID YOU LAST EAT? N/A . WHEN DID YOU LAST DRINK? __ . WHAT DID YOU DRINK? ____ . NAME OF PERSON DRIVING YOU HOME: ____ . IS THERE A CHANCE YOU COULD BE ? NO . HAVE YOU BEEN SICK IN THE PAST WEEK (COUGH, COLD, FEVER, OR FLU)? NO . DO YOU TAKE ANY BLOOD THINNERS? (COUMADIN, PLAVIX, AGGRENOX, PLETAL, PRADAXA, OR XARELTO) NO . DO YOU HAVE ANY RASHES OR OPEN SORES? NO . ANY CHANGE IN BOWEL OR BLADDER CONTROL? NO . ARE YOU ALLERGIC TO SHELLFISH OR IV DYE? NO . ARE YOU DIABETIC? NO . DO YOU HAVE PACEMAKER OR DEFIBRILLATOR? NO . ANY NEW PROBLEMS WITH MEDICINES OR NEW ALLERGIES? NO . ANY NEW PATTERNS OF PAIN OR NUMBNESS? NO . ANY CHANGE IN YOUR MEDICAL CONDITION? NO . HAVE YOU FALLEN IN THE PAST SIX MONTHS? NO . DO YOU USE ANY TYPE OF TOBACCO (SMOKE, SMOKELESS, CHEW)? NO . ARE YOU ABUSED, NEGLECTED, OR IN AN UNSAFE ENVIRONMENT? NO . DO YOU HAVE THOUGHTS OF HURTING YOURSELF OR SOMEONE ELSE? NO . DO YOU NEED ANY PRESCRIPTIONS? NO . DO YOU HAVE ANY OTHER QUESTIONS OR CONCERNS? NO . CONSTITUTIONAL: RECENT ILLNESS DENIES . ANY CHANGE IN YOUR MEDICAL CONDITION? NO . CHILLS NO . FEVER NO, DENIES . WEIGHT LOSS DENIES . INFECTION: DO YOU HAVE NEW INFECTIONS? NO . DO YOU HAVE HISTORY OF MRSA? NO . MUSCULOSKELETAL: ANY NEW PATTERNS OF PAIN OR NUMBNESS? NO . SYTEMIC LUPUS NO . JOINT PAIN DENIES . JOINT STIFFNESS DENIES . GASTROENTEROLOGY: BOWEL INCONTINENCE DENIES . ANY NEW CHANGE IN BOWEL CONTROL? NO . BARRETTS ESOPHAGUS NO . CIRRHOSIS NO . HEPATITIS NO . LIVER FAILURE NO . ACID REFLUX NO . BLOOD IN STOOL DENIES . UNEXPLAINED WEIGHT LOSS NO . GENITOURINARY: ANY NEW CHANGE IN BLADDER CONTROL? NO . IS THERE A CHANCE YOU COULD BE ? NO . HEMATOLOGY/LYMPH: DENIES . BLEEDING DISORDER DENIES . DO YOU TAKE ANY BLOOD THINNERS? (FOR EXAMPLE- COUMADIN, PLAVIX, AGGRENOX, PLATEL, PRADAXA, OR XARELTO) NO . WHEN WAS YOUR LAST DOSE? DATE: TIME: . LOW PLATELET COUNT NO . SICKLE CELL DISEASE NO . VON WILLIEBRANDS NO . FACTOR V LEIDEN NO . THALLASEMIA NO . ANEMIA NO . EASY BRUISING NO . NEUROLOGY: HAVE YOU FALLEN IN THE PAST 6 MONTHS? NO . ANY NEW EXTREMITY NUMBNESS OR WEAKNESS? NO . HEAD INJURY NO . DEMENTIA NO . CEREBRAL PALSY NO . MULTIPLE SCLEROSIS NO . DIZZINESS NO . HEADACHE NO, DENIES . SEIZURES DENIES . STROKES NO . VERTIGO NO . CARDIOLOGY: DO YOU HAVE A PACEMAKER OR DEFIBRILLATOR? NO . ANGINA NO . HEART ATTACK NO . HEART SURGERY NO . CONGESTIVE HEART FAILURE/FLUID OVERLOAD NO . CHEST PAIN NO, DENIES . HIGH BLOOD PRESSURE NO . IRREGULAR HEART BEAT NO . SHORTNESS OF BREATH DENIES . RESPIRATORY: HAVE YOU BEEN SICK IN THE PAST WEEK? YES, RECENT COLD . FEVER NO . FLU LIKE SYMPTOMS? NO . CPAP NO . BYPAP NO . ASTHMA NO . EMPHYSEMA NO . CHRONIC LUNG DISEASES NO . SHORTNESS OF BREATH ON EXERTION NO . DO YOU USE ANY TYPE OF TOBACCO (SMOKE, SMOKELESS, CHEW)? NO . COUGH NO, DENIES . SHORTNESS OF BREATH DENIES . SNORING NO . INTEGUMENTARY: DO YOU HAVE ANY RASHES OR OPEN SORES? NO . ALLERGIC/IMMUNO: ARE YOU ALLERGIC TO SHELLFISH OR IV DYE? NO . ANY NEW ALLERGIES? NO . PSYCHIATRIC: DO YOU HAVE THOUGHTS OF HURTING YOURSELF OR SOMEONE ELSE? NO . ARE YOU ABUSED, NEGLECTED, OR IN AN UNSAFE ENVIRONMENT? NO . ENDOCRINOLOGY: THYROID DISEASE DENIES . ARE YOU DIABETIC? NO . DIABETES DENIES . THYROID DISORDER NO . OTHER: DO YOU NEED ANY PRESCRIPTIONS? NO . IF YES, PLEASE LIST: ____ . ANY NEW PROBLEMS WITH YOUR MEDICATIONS? NO . WHEN DID YOU LAST EAT? ____ . WHEN DID YOU LAST DRINK? ____ . WHAT DID YOU LAST DRINK? ____ . NAME OF PERSON DRIVING YOU HOME? ____ . DO YOU HAVE ANY OTHER QUESTIONS OR CONCERNS NO . HEENT: CHANGE IN VISION DENIES . LOSS OF HEARING DENIES . TROUBLE SWALLOWING DENIES . PSYCHOLOGY: ANXIETY DENIES . DEPRESSION DENIES . UROLOGY: URINARY INCONTINENCE DENIES . BLOOD IN URINE DENIES . REVIEWED BY: PROVIDER: CORINA COURTNEY . VITAL SIGNS WT 167.4 LBS, HT 60 IN, BMI 32.69 INDEX, BP 153/80 MM HG, HR 117 /MIN, RR 18 /MIN, TEMP 98.0 F, OXYGEN SAT % 93%, NA INITIALS SC 13:23, REVIEWED BY: MAJO. EXAMINATION GENERAL EXAMINATION: HEENT:HEAD:, NORMOCEPHALIC, EYES:, EYES NORMAL, NOSE:, NOSE CLEAR, THROAT: NORMAL. LUNGS:LUNG SOUNDS ARE CLEAR. HEART:HEART RATE REGULAR. ABDOMEN:SOFT AND NOT TENDER, NON-DISTENDED. MUSCULOSKELETAL:*. LUMBAR SACRAL SPINEMUSCLE STRENGTH TESTING 5/5 BLE. PALPATION: +FOR PAIN OVER L/S SPINE. + FOR PAIN OVER L/S PARASPINALS.. THORACIC SPINENEGATIVE FOR PAIN WITH PALPATION OF THORACIC SPINE. NEGATIVE FOR PAIN WITH PALPATION OF THORACIC PARASPINAL. CERVICALNEGATIVE FOR PAIN WITH PALPATION OF CERVICAL SPINE. NEGATIVE FOR PAIN WITH PALPATION OF CERVICAL PARASPINALS. NEGATIVE FOR PAIN WITH PALPATION OF TRAPEZIUS BILAT. SKIN:NORMAL, NO RASH. NEUROLOGIC EXAM:ALERT AND ORIENTED X 3, DTRS 1-2+ IN ALL 4 EXTREMITIES, DENIES UPPER EXTREMETIES SENSORY LOSS, DENIES LOWER EXTREMETIES SENSORY LOSS. ASSESSMENTS ARTHROPATHIES - M12.9 (PRIMARY) TREATMENT ARTHROPATHIES NOTES: PATIENT WAS ADVISED TO START A WALKING PROGRAM TO STRENGTHEN LUMBAR PARASPINAL MUSCLES AND IMPROVE MOBILITY. THEY WERE ADVISED THAT THIS WILL IMPROVE WEIGHT LOSS AND ALSO DEPRESSION/FIBROMYALGIA SYMPTOMS. ADVISED TO WALK 10 MINUTES EVERY OTHER DAY ON A FLAT SURFACE. EMPHASIZED THE IMPORTANCE OF DOING THIS CONSISTANTLY AND NOT SPORATICALLY TO AVOID INJURY. STRONG ADVISED NOT TO DO MORE THAN 10 MINUTES EVERY OTHER DSY FOR THE FIRST 4 WEEKS., RECOMMEND IBUPROFEN 600MG THREE TIMES DAILY AND [id number] DAILY.CONSIDER DISCONTINUING SERTRALINE.RECOMMEND INTERMITTENT USE OF HYDROCODONE 7.5MG PRN FOR SEVERE PAIN #45 FOR ONE MONTH SUPPLY. OTHERS CLINICAL NOTES: [employer] REGISTRY REVIEWED. PROCEDURE CODES G8730 PAIN ASSESS POS TOOL F/U PLAN DOC G8427 DOC MEDS VERIFIED W/PT OR RE DISPOSITION & COMMUNICATION FOLLOW UP PT WILL CALL IF NEEDED ELECTRONICALLY SIGNED BY ROZ MCFARLANE ON 01/14/2017 AT 03:50 PM EDT DISCLAIMER : THIS IS A VISIT SUMMARY EXTRACTED FROM THE [employer] CHART. IT IS NOT A COPY OF THE [employer] PROGRESS NOTE. KAPIL
== END | disposition home or self-care (01) ==
LOC: M PAIN 13:20
PROVIDERS: ATTEND Nurse Practitioner Family
DX: G89.29 Other chronic pain (principal); M12.9 Arthropathy, unspecified; E11.9 Type 2 diabetes mellitus without complications; J44.9 Chronic obstructive pulmonary disease, unspecified; I50.9 Heart failure, unspecified; E78.5 Hyperlipidemia, unspecified; M19.90 Unspecified osteoarthritis, unspecified site; F31.9 Bipolar disorder, unspecified; I25.2 Old myocardial infarction; Z79.899 Other long term (current) drug therapy; Z79.82 Long term (current) use of aspirin; Z79.51 Long term (current) use of inhaled steroids; Z79.52 Long term (current) use of systemic steroids; Z99.81 Dependence on supplemental oxygen; Z88.0 Allergy status to penicillin; Z88.5 Allergy status to narcotic agent; Z88.8 Allergy status to other drugs, medicaments and biological substances; Z91.010 Allergy to peanuts; F17.210 Nicotine dependence, cigarettes, uncomplicated